=== PATIENT | male | born 2000 | race Caucasian/White ===

== ENCOUNTER 2024-10-31 22:45 | Emergency (ER) | payer OTHER, SELFPAY ==
[2024-10-31 22:52] VITALS: BP 165/86; PULSE 99; RESP 17; TEMP 37.1; O2SAT 97; BMI 38.2
--- NOTE | 2024-10-31 23:04 | PC.NURSE ---
this RN assumed care of this pt approximately around @2255, pt A+Ox3, animal bite assessed, bleeding controlled, minimal swelling, no redness, approximately 1cm x 0.5cm in size, no discharge. No numbness/tingling/burning, w/ full ROM w/ adequate perfusion cap refill <2 seconds
--- NOTE | 2024-10-31 23:05 | ED.ANIMALBIT ---
HPI - Animal Bite General Chief Complaint: Animal Bite Stated Complaint: dog bite right hand Time Seen by Provider: 10/31/24 23:02 History of Present Illness ED Provider: Nikos Gamez MD HPI narrative: 24 M with a dog bite to the right, dominant hand thumb about a cm bleeding has stopped at the dorsal base of the thumb. No other injuries rabies vaccinated dogs both Related Data Previous Rx's ?Medication ?Instructions ?Recorded amoxicillin 875 mg-potassium 1 tab PO BID 5 days #10 tabs 10/31/24 clavulanate 125 mg tablet Allergies Allergy/AdvReac Type Severity Reaction Status Date / Time No Known Allergies Allergy Verified 10/31/24 22:54 [facility] Social History Social History Alcohol intake: current Alcohol intake frequency: a few times a month Alcohol type: beer Smoked in Last 30 Days: No Use of substances other than those prescribed or required for medical reasons: No Advance Directives: No Advance Directives Information Provided: Yes Do you have a plan to hurt others: No Plan Physical Exam ED Exam Exam: GENERAL: Well appearing. No apparent distress. Alert. HEAD/NECK: No visual trauma. EYES: Normal to inspection. No conjunctival erythema. No discharge. ENMT: Hearing grossly normal. External nose normal. RESPIRATORY: Respiratory effort normal. CARDIOVASCULAR: Additional details (Grossly well perfused). SKIN: No jaundice. NEUROLOGICAL: Alert. Moving all extremities x4. Additional details (No gross motor deficits. Normal tone. ). Skin: 1 cm subcutaneous laceration dorsal base of the right thumb. No deep fascial penetration or tendon. No foreign body. No bleeding. Neurovascularly intact hand and digit. Vital Signs: Vital Signs - 24 hr 10/31/24 22:52 10/31/24 23:50 Temperature 98.8 F 98.8 F Pulse Rate 99 99 Respiratory Rate 17 17 Blood Pressure 165/86 H 165/86 H Pulse Oximetry 97 97 Oxygen Delivery Method Room Air Room Air BMI result Body Mass Index 38.2 Medications Administered Discontinued Medications Generic Name Dose Route Start Last Admin Trade Name Freq PRN Reason Stop Dose Admin Amoxicillin/Clavulanate Potassium 875 mg 10/31/24 23:02 10/31/24 23:14 Amoxicillin/Potassium Clav 875 Mg Tablet PO 10/31/24 23:03 875 mg ONCE ONE Administration Diphtheria/Tetanus/Acell Pertussis 0.5 ml 10/31/24 23:02 10/31/24 23:14 Diphth,Pertus(Acell),Tet Adult 0.5 Ml Syringe IM 10/31/24 23:03 0.5 ml .ONCE ONE Administration Lidocaine HCl 5 ml 10/31/24 23:21 10/31/24 23:25 Lidocaine Hcl 1 % Mpf 5 Ml Vial INFILTRATI 10/31/24 23:22 Not Given ONCE ONE Medical Decision Making Medical Decision Making MDM Narrative: 24-year-old male with quite simple dog bite with no neurovascular, deep tissue or tendinous injury on examination and inspection of the wound. Plan for laceration approximation loosely an antibiotic prophylaxis as well as tetanus Differential Diagnosis Differential Diagnoses: The differential diagnosis associated with the presentation includes Dog bite/tetanus exposure/deep tissue hand wound Procedures Laceration Laceration 1: Site: hand Side (If applicable): right Size (cm): 1 Description: linear Depth: simple, single layer Local Anesthetic: lidocaine 1% Amount of anesthesia used (mL): 3 Pre-repair: wound explored and irrigated extensively Skin layer closed with: nylon Size (cm): 4-0 Number of sutures: 2 Technique: simple, interrupted Discharge Plan Discharge Clinical Impression: Bite by animal Patient Disposition: Home, Self-Care Instructions: Laceration (DC), Marine Animal Bite or Sting (ED) Additional Instructions: DISCHARGE DIAGNOSES: Dog bite/hand laceration HISTORY OF PRESENTATION: ?Dog bite EMERGENCY DEPARTMENT COURSE,TESTS, TREATMENTS: While in the ED today hand laceration was repaired with 2 sutures after irrigation you received a tetanus shot and a 1st dose of Augmentin antibiotic DISCHARGE MEDICATIONS: ?Augmentin 5 days FOLLOW-UP: ?Call your primary or general physician soon as possible to discuss your symptoms, your ED visit and to discuss follow up plans PCP or urgent care for suture removal 7-10 days INSTRUCTIONS ?& RETURN PRECAUTIONS: If any symptoms change first call your primary physician, if it is after-hours your primary doctors office should have a provider correspondence renew clerk you can speak with. If the symptoms are severe or very concerning to you then call 911 or return to the ED. Nikos Gamez MD Emergency Physician [facility] Prescriptions: New amoxicillin-pot clavulanate 875-125 mg tablet 1 tab PO BID 5 Days Qty: 10 0RF Interventions: ED Discharge Assessment Last Done: 10/31/24 23:50 Discharge Date/Time: 10/31/24 23:54 Print Language: Yakut
[2024-10-31] MEDS: Diphth,Pertus(ACell),Tet Adult 0.5 ML SYRINGE IM (23:14)
--- NOTE | 2024-10-31 23:19 | PC.NURSE ---
pt medicated per MAR, provider Nikos at the bedside
--- OUTSIDE RECORDS SUMMARY | 2024-10-31 23:49 | XMS_ITS | Clinical Summary ---
Author Organization [facility] Address [address] [place], [place] [id number] Phone Care Team Providers Care Wet Washer Machine Name Role Phone Unknown, Unknown Primary Care Provider Valentina alvarez Social History Tobacco Use Types Packs/Day Years Used Date Smoking Tobacco: Never Assessed Education Answer Date Recorded Are you interested in more education? Not on miriam e 07/23/2022 Are you concerned about learning? Not on file 07/23/2022 No 07/23/2022 No 07/23/2022 Digital Access Answer Date Recorded No 08/23/2022 No 08/23/2022 No 08/23/2022 Reliable internet access at home? Not on file 08/23/2022 Device with a working camera? Not on file Sex and Gender Information Value Date Recorded Sex Assigned at Not on file Legal Sex Male 8:47 PM EDT Gender Identity Not on file Sexual Orientation Not on file Plan of Treatment Not on file Medical Devices Not on file Insurance [facility] [address] [place], [place] [id number] [facility] [address] [place], [place] [address] HMO Care Teams Wet Washer Machine Relationship Specialty Start Date End Date Unknown, Unknown, PCP - General 03/26/18 Additional Source Comments The information contained in this document represents components of the legal health record. It is not the complete legal health record.[facility]
[2024-10-31 23:50] VITALS: BP 165/86; PULSE 99; RESP 17; TEMP 37.1; O2SAT 97
== END 2024-10-31 23:54 | disposition home or self-care (01) ==
LOC: HO.ED 23:47
PROVIDERS: Emergency Provider Emergency Medicine
DX: S61.011A Laceration without foreign body of right thumb without damage to nail, initial encounter (principal); W54.0XXA Bitten by dog, initial encounter; Y93.89 Activity, other specified; Y92.89 Other specified places as the place of occurrence of the external cause; Y99.8 Other external cause status
CPT/HCPCS: 12001; 90471; 90715; 99283; 99284

== ENCOUNTER 2024-12-25 15:48 | Outpatient (REF) | payer OTHER, SELFPAY ==
[2024-12-25 16:26] LABS: MANUAL DIFF FLAG NO
[2024-12-25 17:14] LABS: Hematocrit 44.0 % (42.0-52.0); Hemoglobin 15.2 g/dl (14.0-18.0); Imm Gran Abs Auto 0.08 X10*3/uL (0.00-0.03); Imm Gran Pct Auto 1.1 % (0.0-0.4); Lymphocytes Absolute Auto 1.8 X10*3/uL (1.2-4.9); Mean Corpuscular HGB Conc 34.5 g/dl (31.0-36.0); Mean Corpuscular Hemoglobin 29.9 pg (27.0-33.0); Mean Corpuscular Volume 86.4 fL (80.0-98.0); NRBC Abs Auto 0.000 X10*3/uL (0.0-0.012); NRBC Pct Auto 0.0 /100WBC (0.0-0.2); Platelet Count 327 X10*3/uL (160-400); Red Blood Count 5.09 X10*6/uL (4.60-5.80); White Blood Count 7.3 X10*3/uL (4.8-10.8)
[2024-12-25 17:36] LABS: Alanine Aminotransferase 81 U/L (0-40); Albumin Level 4.7 g/dL (3.5-5.0); Alkaline Phosphatase 103 U/L (39-117); Anion Gap 12 (12-20); Aspartate Amino Transferase 33 U/L (5-37); Blood Urea Nitrogen 16 mg/dL (9-16); Calcium 9.8 mg/dL (8.4-10.2); Carbon Dioxide 30 mmol/L (22-29); Chloride 104 mmol/L (96-108); Estimated Glomerular Filt Rate > 60; Potassium 4.0 mmol/L (3.3-5.1); Sodium 142 mmol/L (135-145); Total Protein 7.7 g/dL (6.5-8.0)
[2024-12-26 05:49] LABS: HBS Num1 2.55 mIU/mL (0-7.99); HBc Num1 0.09 S/CO (0.00-0.79); HBsAGNum1 0.31 S/CO (0.00-0.99); Hepatitis A Antibody IgM 0.25 Index (0-0.79); Hepatitis B Surface Antigen Negative (Negative); ~HepC Num1 0.11 S/CO (0.00-0.79); ~Hepatitis A Antibody IgM Nonreactive (Nonreactive); ~Hepatitis B Surface Antibody NONREACTIVE (Nonreactive); ~Hepatitis C Antibody Nonreactive (Nonreactive)
== END 2024-12-25 15:49 | disposition home or self-care (01) ==
LOC: HO.LAB 15:48
PROVIDERS: PCP Student in an Organized Health Care Education/Training Program; Visit Provider Student in an Organized Health Care Education/Training Program
DX: Z76.89 Persons encountering health services in other specified circumstances (principal)
CPT/HCPCS: 36415; 80053; 85025; 86704; 86706; 86709; 86803; 87340; 96127

== ENCOUNTER 2024-12-25 15:48 | Outpatient (AMB) | payer OTHER, SELFPAY ==
--- NOTE | 2024-12-25 15:46 | A.OFFPC_ITS ---
Vital Signs 12/25/24 15:54 Height 5 ft 9 in Weight 258 lb BMI 38.1 BP 110/74 Blood Pressure Location Lt brachial Position Sitting Respiration 16 Pulse 83 Pulse Source Pulse Oximeter Temp 97.5 F Temp Source Temporal Artery Scan Pulse Oximetry (%) 97 Oxygen Delivery Method Room Air Intake Visit Reasons: [id number]-ichuv-pzavl physical for work Nitro Man Required: No Accompanied by: Self / Same As Patient Allergies No Known Allergies Allergy (Verified 12/25/24 15:46) Tobacco use date assessed: 12/25/24 Dental Screening Dental Screen Date: 12/25/24 Did you have a dental visit in the last 12 months?: No Did you have a dental problem in the last 6 months where you did not have access to dental care?: No Was dental information given to patient?: Patient has dentist HPI HPI Comments History of Present Illness Details The patient is a 24-year-old male presenting for a wellness visit, specifically a physical examination required for employment purposes. He reports feeling generally good without any complaints or concerns beyond acknowledging being slightly overweight. The patient has a history of a cyst on the back of his knee for which he underwent surgery. Apart from this, he denies any past medical conditions or significant surgeries. There is no family history of heart disease or diabetes, although the patient mentions a family history of cancer in his grandmother, but he is unsure of the specific type. He reports minimal alcohol use, consuming alcohol only once a year, and denies smoking, using marijuana, or any other illicit drugs. 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 - Minimal alcohol consumption, drinking alcohol about once a year - Denies use of tobacco, marijuana, or i llicit drugs [facility] Medical History (Updated 12/25/24 @ 16:05 by Mor Durand MD) Establishing care with new doctor, encounter for Social History Housing: Apartment Alcohol intake: current Alcohol intake frequency: a few times a month Alcohol type: beer Patient Tobacco Use Status: Never used Tobacco e-Cigarette/Vaping Use: Never Used service: No Current occupational status: unemployed Questionnaire PHQ-9 Over the last 2 weeks, how often have you been bothered by any of the following problems? 1. Little interest or pleasure in doing things: not at all 2. Feeling down, depressed, or hopeless: not at all 3. Trouble falling or staying asleep, or sleeping too much: not at all 4. Feeling tired or having little energy: not at all 5. Poor appetite or overeating: not at all 6. Feeling bad about yourself - or that you are a failure or have let yourself or your family down: not at all 7. Trouble concentrating on things, such as reading the newspaper or watching television: not at all 8. Moving or speaking so slowly that other people could have noticed. Or the opposite - being so fidgety or restless that you have been moving around a lot more than usual: not at all 9. Thoughts that you would be better off or of hurting yourself in some way: not at all Total score: 0 Depression Screening Interpretation: Negative Depression Screening Done: Yes 07206 - PHQ-9 Billing: Yes Source: Developed by Drs. Walyl Mccann, Kasey Jean, Devon Peres and colleagues, with an educational jeni from [employer]. Thrive Questionnaire Date Thrive assessed: 12/25/24 I am a: Patient What is your living situation today?: I have a steady place to live Within the past 12 months, did the food you bought not last and you didn't have the money to get more?: Never true Within the past 12 months, did you worry whether your food would run out before you got money to buy more?: Never true Do you have trouble paying for medicines?: No Do you have trouble getting transportation to medical appointments?: No Do you have trouble paying your heating and electricity bill?: No Do you have trouble taking care of your child, family member or friend?: No Do you have trouble with day-to-day activities such as bathing, preparing meals, shopping, managing finances, etc.?: No Are you currently unemployed and looking for a job?: No Are you interested in more education?: No THRIVE Score: 0 AUDIT C Alcohol Use Questionnaire (AUDIT-C) 1. How often do you have a drink containing alcohol?: Monthly or less 2. How many drinks containing alcohol do you have on a typical day when you are drinking?: 1 or 2 3. How often do you have six or more drinks on one occasion?: Never Total Score: 1 Score Reviewed/Action Taken: Yes AYAAN-7 AMB Questionnaire AYAAN-7 Date AYAAN - 7 assessed: 12/25/24 Feeling nervous, anxious, or on edge: 0 = Not at all Not being able to stop or control worryin = Not at all Worrying too much about different things: 0 = Not at all Trouble relaxin = Not at all Being so restless that it is hard to sit still: 0 = Not at all Becoming easily annoyed or irritable: 0 = Not at all Feeling afraid as if something awful might happen: 0 = Not at all Total AYAAN-7 score (0-4 normal; 5-9 mild; 10-14 moderate; 15-21 severe): 0 Source: Developed by Drs. Wally Mccann, Kasey Jean, Devon Peres and colleagues, with an educational jeni from [employer]. AYAAN-7 Assessment Billing AYAAN-7 Assessment Tool: AYAAN-7 Assessment 34898 Review of Systems Const Details: - General: Reports feeling pretty good overall - Gastrointestinal: Reports being a little overweight - Substance Use: Denies smoking, marijuana use, and illicit drugs; minimal alcohol use All systems reviewed & are unremarkable except as reviewed in HPI and above Physical exam (Primary Care) Vital Signs: Last Vital Signs Temp 97.5 F 12/25/24 15:54 Pulse 83 12/25/24 15:54 Resp 16 12/25/24 15:54 BP 110/74 12/25/24 15:54 Pulse Ox 97 12/25/24 15:54 Oxygen Delivery Method Room Air 12/25/24 15:54 BMI result Body Mass Index 38.1 Tobacco/Smoking Status: Tobacco use Status Tobacco use date assessed 12/25/24 12/25/24 15:47 Patient Tobacco Use Status Never used Tobacco 12/25/24 15:57 e-Cigarette/Vaping Use Never Used 12/25/24 15:57 Depression Screening Interpretation: Negative Const Other: General: +Alert and oriented, Well nourished, No acute distress. Eye: Pupils are equal, round and reactive to light, Intact accommodation, Extraocular movements are intact, Normal conjunctiva, Vision unchanged. HENT: Normocephalic, Atraumatic, Tympanic membranes are clear, Normal hearing, Oral mucosa is moist, No pharyngeal erythema, Ear canals patent. Respiratory: Lungs CTA bilaterally, No wheeze, Respirations are non-labored. Cardiovascular: Regular rate, Regular rhythm, S1 auscultated, S2 auscultated, No murmur, Good pulses equal in all extremities, Normal peripheral perfusion, No edema. Gastrointestinal: Soft, Non-tender, Non-distended, Normal bowel sounds, No organomegaly. Musculoskeletal: Normal range of motion, Normal strength, No tenderness, No swelling, No deformity, Normal gait. Integumentary: Warm, Dry, [place], Intact. Neurologic: Alert, Oriented, Normal sensory, Normal motor function, No focal defects, Cranial Nerves II-XII are grossly intact, Normal deep tendon reflexes. Psychiatric: Cooperative, Appropriate mood & affect, Normal judgment. 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 Plan During the consultation, we discussed the importance of maintaining a healthy lifestyle, particularly in terms of diet and exercise, to address the patient's concerns about being slightly overweight. I planned to obtain routine blood work to assess the patient's blood counts and electrolytes, as these are important indicators of overall health. 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 I informed him that after receiving the blood test results, a letter confirming his health status would be provided for employment purposes. I advised the patient to continue with healthy lifestyle practices and reassured him of his good health status. Orders: Orders Complete Blood Count Auto Diff Today Z76.89 - Persons encountering health services in other specified circumstances Comprehensive Met. Panel Today Z76.89 - Persons encountering health services in other specified circumstances Hepatitis A,B,C Profile Today Z76.89 - Persons encountering health services in other specified circumstances Medications: Discontinued amoxicillin-pot clavulanate 875-125 mg Discontinued Reason: Patient Completed Course 1 tab PO BID 5 days 10 tabs 0RF Patient Instructions: - Continue eating a healthy diet and engage in regular physical activity. - Proceed to the hospital's main entrance for blood work. - Await results; if all parameters are normal, a letter confirming fitness for work will be provided.
[2024-12-25 15:54] VITALS: BP 110/74; PULSE 83; RESP 16; TEMP 36.4; O2SAT 97; BMI 38.1
--- OUTSIDE RECORDS SUMMARY | 2024-12-25 16:58 | XMS_ITS | Clinical Summary ---
Author Organization [facility] Address [address] [place] [phone] Phone Care Team Providers Care Freedom Of Information Officer Name Role Phone Unavailable Primary Care Provider Unavailabl e Allergies Active Allergy Reactions Criticality Noted Date Comments Food Rash Low 01/25/2017 Red Dye Medications Melatonin 5 MG tablet Take 5 mg by mouth nightly. Active Active Problems Problem Noted Date Diagnosed Date Anxiety 05/13/2017 Overview (07/01/2017): SCARED elevated (46) and (35 parent) May 13 2017. Starting fluoxetine 10mg - no effect, will increase to 20mg 07/01/17 Assessment & Plan (05/13/2017 12:03 PM EST): Will start fluoxetine 10mg. Recheck in a week. Depression 04/06/2016 Overview (07/01/2017): No improvement on fluox 10mg, incr to 20mg 06/29/17 Sleep disturbance 03/25/2015 Overview (07/01/2017): Melatonin ineffective. Trazodone 50mg nightly working well. Apr 2017 - not working as well (he is taking only 25mg now); will go up to 50mg with plan to decrease to 25mg when anxiety is better controlled. 06/29/17: stopped medication altogether about 2-3 weeks ago and sleeping better Assessment & Plan (05/13/2017 12:07 PM EST): Go up to 50mg of Trazodone for 2-3 nights. If going well, then ok to start fluoxetine. Recheck in a week. Attention-deficit hyperactivity disorder, combin ed type 01/14/2015 Overview (01/25/2017): On Metadate CD 20mg, doing well. Acne vulgaris 01/10/2015 Overview (01/11/2017): Doing well with out medication Immunizations Immunization Administration Dates Next Due BCG 1999 DTaP 07/07/2004, 1,03/08/2000,01/24,1999 H1N1 03/08/2009,02/07/2009 HPV Vaccine 9 Valent 12/30/2015,11/23/2014 HPV, Quadrivalent 08/06/2013 Hep A, ped/adol 08/06/2013,07/14/2004 Hep B, ped/adol 06/07/2000,01/14/2000,1999 Hib (PRP-T) 12/29/2000, 0,01/14/2000,11/19 IPV 07/07/2004, 1,01/25/2000,12/01 Influenza 01/11/2013, 2,04/10/2011,03/08,12/08/2007,01/23/2007,02/21/2006 ,03/17/2005,04/30/2003,04/04/2003 Influenza, injectable, quadr ivalent, preservative free 12/30/2015 Influenza, intranasal, quadrivalent 01/14/2015 MMR 07/07/2004,09/05/2000 Meningococcal Conj (Menactra) MCV4P 04/10/2011 Pneumococcal Conjugate 05/01/2001,03/08/2000, Tdap 07/14/2011 Varicella 05/15/2011,09/05/2000 Social History Tobacco Use Types Packs/Day Years Used Date Smoking Tobacco: Never Assessed Sex and Gender Information Value Date Recorded Sex Assigned at Not on file Legal Sex Male 10:46 PM EST Gender Identity Not on file Sexual Orientation Not on file Last Filed Vital Signs Vital Sign Reading Time Taken Comments Blood Pressure 115/65 07/01/2017 4:21 PM EDT Pulse 71 03/26/2018 9:50 AM EST Temperature 36.8 C (98.2 F) 03/26/2018 9:50 AM EST Respiratory Rate 28 03/26/2018 9:50 AM EST Oxygen Saturation 99% 03/26/2018 9:50 AM EST Inhaled Oxygen Concentration - - Weight 99.1 kg (218 lb 6.4 oz) 03/26/2018 9:50 A M EST Height 175.3 cm (5' 9 ) 07/01/2017 4:21 PM EDT Body Mass Index - - Plan of Treatment Health Maintenance Due Date Last Done Comments DTaP,Tdap,and Td Vaccines (7 - Td or Tdap) 07/13/2021 07/14/2011, 07/07/2004, 12/29/2000, Additional history exists Influenza Vaccines (#1) 2024 12/30/19 16, 01/14/2015, 01/11/2013, Additional history exists COVID-19 Vaccine ( season) 2024 08/16/2020, 07/24/2020 Hepatitis B Vaccines Completed 06/07/2000, 01/14/2000, 1999 HIB Vaccines Completed 12/29/2000, 02/25, 01/14/2000, Additional history exists Pneumococcal Vaccine Completed 05/01/2001, 03/08/2000, 1999 IPV Vaccines Completed 07/07/2004, 05/26, 01/25/2000, Additional history exists MMR Vaccines Completed 07/07/2004, 09/05/2000 Meningococcal Vaccine Aged Out 04/10/2011 No irene alba eligible based on patient's age to complete this topic Varicella Vaccines Completed 05/15/2011, 09/05/2000 Hepatitis A Vaccines Completed 08/06/2013, 07/15/19 05 HPV Vaccines Completed 12/30/2015, 10/27, 08/06/2013 Men B Vaccine Aged Out No longer emmie munoz based on patient's age to complete this topic Insurance [facility] [employer]
--- OUTSIDE RECORDS SUMMARY | 2024-12-25 16:58 | XMS_ITS | Clinical Summary ---
Author Organization [facility] Address [address] [place], [place] [id number] Phone Care Team Providers Care Last Repairer Helper Name Role Phone Unknown, Unknown Primary Care [...] file Medical Devices Not on file Insurance [facility] [place] [address] [place], [place] [id number] [facility] [address] [place], [place] [id number] HMO Care Teams Last Repairer Helper Relationship Specialty Start Date End Date Unknown, Unknown, PCP - General 03/26/18 Additional Source Comments The information contained in this document represents components of the legal health record. It is not the complete legal health record.[facility]
--- OUTSIDE RECORDS SUMMARY | 2024-12-25 16:58 | XMS_ITS | Encounter Summary ---
Author Organization [facility] Address [address] [place] [id number] Phone Care Team Providers Care Emt Basic Name Role Phone Adenike Peralta TYPEWRITERS FUNCTIONAL TESTER Primary Care Provider [phone] Encounter Details Date Type Department Care Team (Late st Contact Info) Description 11/03/2016 Conversion Encounter [facility] - [address], [address] [place] [address] Adenike Peralta NP [address] [place] [address] Social History Tobacco Use Types Packs/Day Years Used Date Smoking Tobacco: Never Assessed Sex and Gender Information Value Date Recorded Sex Assigned at Not on file Legal Sex Male 10:46 PM EST Gender Identity Not on file Sexual Orientation Not on file documented as of this encounter Plan of Treatment Not on file documented as of this encounter Visit Diagnoses Not on filedocumented in this encounter Care Teams Emt Basic Relationship Specialty Start Date End Date Adenike Peralta NP [address] [place] [address] PCP - General 05/18/16 08/26/20 documented as of this encounter
== END 2024-12-25 16:05 | disposition home or self-care (01) ==
PROVIDERS: PCP Student in an Organized Health Care Education/Training Program; Visit Provider Student in an Organized Health Care Education/Training Program
DX: Z76.89 Persons encountering health services in other specified circumstances (principal)